=== PATIENT | female | born 1980 | race Caucasian/White ===

== ENCOUNTER → 2017-12-23 | Outpatient (CLI) | payer OTHER ==
[~2017-12-23] MED LIST: ADAL40PE SQ; ALBU0.63 IH; BUDE10.2 IH; CATHETER FLUSH 10 ML SYR IV PRN; CHOL100045 PO; CIME200T14 PO; HYDR-34 PO; LORA10TA7 PO; MELO15TA14 PO; MONT10TA21 PO; PSEU60TA20 PO; RT-ALBUINH IH
--- NOTE | 2017-12-23 12:25 | Diagnostic Imaging Report ---
PROCEDURE: US Gallbladder. TECHNIQUE: Multiple Real-time grayscale images were obtained over the right upper quadrant in various projections. INDICATION: Right-sided abdominal pain with nausea and vomiting. FINDINGS: The visualized pancreas is unremarkable. The liver is normal in size. No discrete liver mass is identified. The portal vein is patent and demonstrates normal direction of flow. The gallbladder is without stones or sludge. No wall thickening is identified. There is no pericholecystic fluid. No biliary ductal dilatation is seen. The right kidney is unremarkable. There is no ascites. IMPRESSION: No evidence of cholelithiasis or acute cholecystitis. Dictated by: Dictated on workstation # [id number]
--- NOTE | 2017-12-23 15:49 | Diagnostic Imaging Report ---
INDICATION: Right upper quadrant pain. TECHNIQUE: Patient was administered 5.5 mCi technetium-99m Choletec, and imaging over the abdomen was performed. At 60 minutes, the patient ingested one can of Ensure, and gallbladder ejection fraction was calculated. FINDINGS: There is homogeneous uptake of activity by the liver with prompt excision of activity into the gallbladder and common duct. There is normal passage of activity into the small bowel. Gallbladder ejection fraction is low at 9%. IMPRESSION: 1. No evidence of cystic duct or common bile duct obstruction. 2. Low gallbladder ejection fraction of 9%. Dictated by: Dictated on workstation # [id number]
== END ==
LOC: RAD 11:49
PROVIDERS: ATTEND Nurse Practitioner Family
DX: R10.11 Right upper quadrant pain (principal); R11.2 Nausea with vomiting, unspecified
CPT/HCPCS: 76705; 78227

== ENCOUNTER 2017-12-24 08:32 | Outpatient (CLI) | payer OTHER ==
[~2017-12-24] VITALS: Ht 167.6 cm; Wt 74.8 kg
[2017-12-24] MEDS ORDERED: CHOL100045 PO (10:53)
[2017-12-24] MEDS ORDERED: LORA10TA7 PO (10:53)
[2017-12-24] MEDS ORDERED: RT-ALBUINH IH (10:53)
[2017-12-24] MEDS ORDERED: CIME200T14 PO (10:53)
[2017-12-24] MEDS ORDERED: BUDE10.2 IH (10:53)
[2017-12-24] MEDS ORDERED: ADAL40PE SQ (10:53)
[2017-12-24] MEDS ORDERED: MELO15TA14 PO (10:53)
[2017-12-24] MEDS ORDERED: MONT10TA21 PO (10:53)
[2017-12-24] MEDS ORDERED: ALBU0.63 IH (10:53)
[2017-12-24] MEDS ORDERED: PSEU60TA20 PO (10:53)
[2017-12-25] MEDS ORDERED: HYDR-34 PO (14:06)
== END 2017-12-24 11:00 ==
LOC: PREOP 08:32
PROVIDERS: ATTEND Surgery
DX: Z01.818 Encounter for other preprocedural examination (principal); K82.8 Other specified diseases of gallbladder

== ENCOUNTER 2017-12-25 12:09 | Day surgery (SDC) | payer OTHER ==
[~2017-12-25] VITALS: Ht 167.6 cm; Wt 74.8 kg
[~2017-12-25 12:09] MED LIST changes: -CATHETER FLUSH 10 ML SYR IV PRN; -HYDR-34 PO
[2017-12-25 12:13] VITALS: BP 137/97
[2017-12-25] MEDS ORDERED: BUP/EPI 0.5% 1:200,000 (SENSORCAINE) 30 ML VIAL ONE (12:20)
[2017-12-25] MEDS ORDERED: LACTATED RINGERS 1,000 ML IV PRN (12:26)
[2017-12-25] MEDS ORDERED: MIDAZOLAM 2 MG/2 ML (VERSED) VIAL ONE (12:27)
[2017-12-25] MEDS ORDERED: fentaNYL INJECTION 100 MCG/2 ML AMP ONE ×2 (12:27→13:58)
[2017-12-25] MEDS ORDERED: proPOfol 200 MG/20 ML (DIPRIVAN) VIAL IV ONE (12:27)
[2017-12-25] MEDS ORDERED: DEXAMETHASONE 10 MG/ML (DECADRON) 1 ML VIAL ONE (12:27)
[2017-12-25] MEDS ORDERED: SEVOFLURANE (ULTANE) 15 ML INHAL SOLN ONE (12:27)
[2017-12-25] MEDS ORDERED: LIDOCAINE PF 2% 5 ML (XYLOCAINE) VIAL ONE (12:27)
[2017-12-25] MEDS ORDERED: SCOPOLAMINE 1.5 MG (TRANSDERM-SCOP) PATCH TOP ONE (12:30)
[2017-12-25] MEDS ORDERED: ceFAZolin INJECTION 1,000 MG in NS (IVPB) 100 ML IV ONE (12:30)
[2017-12-25] MEDS ORDERED: FAMOTIDINE 20MG/2ML IV (PEPCID) IV ONE (12:30)
[2017-12-25] MEDS ORDERED: ONDANSETRON 4 MG/2 ML (SDV) Z0FRAN IV ONE (12:30)
[2017-12-25] MEDS: LACTATED RINGERS 1,000 ML IV PRN ×2 (12:40→13:30)
--- NOTE | 2017-12-25 12:42 | Progress Note-Pre Operative ---
Pre-Operative Progress Note H&P Reviewed The H&P was reviewed, patient examined and no changes noted. Date Seen by Provider: Dec 25, 2017 Time Seen by Provider: 12:30 Date H&P Reviewed: Dec 25, 2017 Time H&P Reviewed: 12:30 Pre-Operative Diagnosis: symptomatic chronic acalculous cholecystitis. MARY ELLEN ACUNA MD Dec 25, 2017 12:42 pm
[2017-12-25] MEDS ORDERED: HYDROcodone/APAP 5 MG/325 MG (LORTAB) TAB PO ONE (12:45)
[2017-12-25] MEDS ORDERED: morphine INJ 10 MG/ML 1ML (SYR OR VIAL) IVP PRN (12:45)
[2017-12-25] MEDS ORDERED: ACETAMINOPHEN 325 MG TABLET PO PRN (12:45)
[2017-12-25] MEDS ORDERED: ONDANSETRON 4 MG/2 ML (SDV) Z0FRAN IVP PRN (12:45)
[2017-12-25] MEDS ORDERED: NS (IVPB) 100 ML ONE (12:46)
[2017-12-25] MEDS ORDERED: SCOPOLAMINE 1.5 MG (TRANSDERM-SCOP) PATCH ONE (12:46)
[2017-12-25] MEDS ORDERED: ceFAZolin 1,000 MG (ANCEF) VIAL ONE (12:46)
[2017-12-25 12:50] LABS: BASOPHILS # (AUTO) 0.1 10^3/uL (0.0-0.1); BASOPHILS % (AUTO) 1 % (0-10); EOSINOPHILS # (AUTO) 0.6 10^3/uL (0.0-0.3); EOSINOPHILS % (AUTO) 6 % (0-10); HEMATOCRIT 40 % (35-52); LYMPHOCYTES # (AUTO) 1.9 X 10^3 (1.0-4.0); LYMPHOCYTES % (AUTO) 19 % (12-44); MEAN CORPUSCULAR HEMOGLOBIN 31 PG (25-34); MEAN CORPUSCULAR HGB CONC 35 G/DL (32-36); MEAN CORPUSCULAR VOLUME 89 FL (80-99); MEAN PLATELET VOLUME 10.2 FL (7.4-10.4); MONOCYTES % (AUTO) 10 % (0-12); NEUTROPHILS # (AUTO) 6.4 X 10^3 (1.8-7.8); NEUTROPHILS % (AUTO) 64 % (42-75); PLATELET COUNT 246 10^3/uL (130-400); RED BLOOD COUNT 4.54 10^6/uL (4.35-5.85); RED CELL DISTRIBUTION WIDTH 11.9 % (10.0-14.5); WHITE BLOOD COUNT 9.9 10^3/uL (4.3-11.0)
[2017-12-25] MEDS ORDERED: ONDANSETRON 4 MG/2 ML (SDV) Z0FRAN ONE (13:45)
[2017-12-25] MEDS ORDERED: ROCURONIUM 10 MG/ML 5 ML SYRINGE IV ONE (13:47)
[2017-12-25] MEDS ORDERED: GLYCOPYRROLATE 0.2 MG/ML (ROBINUL) 2 ML VIAL ONE (13:49)
[2017-12-25] MEDS ORDERED: NEOSTIGMINE 1 MG/ML 5 ML SYRINGE ONE (13:49)
--- NOTE | 2017-12-25 14:02 | Progress Note-Post Operative ---
Post-Operative Progess Note Surgeon (s)/Farmworker Vegetable (s) Surgeon MARY ELLEN ACUNA MD Farmworker Vegetable: abhijit mora HIDE COOKING OPERATOR Pre-Operative Diagnosis symptomatic chronic acalculous cholecystitis. Post-Operative Diagnosis same Procedure & Operative Findings Date of Procedure 12/25/17 Procedure Performed/Findings laparoscopic cholecystectomy Anesthesia Type GET Estimated Blood Loss Estimated blood loss (mL): minimal Specimens/Packing Specimens Removed gallbladder MARY ELLEN ACUNA MD Dec 25, 2017 14:02
[2017-12-25] MEDS ORDERED: HYDR-34 PO (14:06)
--- NOTE | 2017-12-25 14:07 | Discharge Inst-Surgical ---
D/C Lap Instructions-KALPANA New, Converted, or Re-Newed RX: RX on Chart Follow Up Appt in 2 weeks Activity as tolerated No driving for 24 hours No driving while on pain medications Incentive Spirometry use every 2 hours while awake Regular Diet Symptoms to Report: Fever over 101 degree F, Nausea/Vomiting Infection Signs and Symptoms to report: Increased redness, Foul odor of wound, Increased drainage Bathing instructions: May shower Operative Area Clean/Dry; Keep incision clean/dry If any problems/questions: Contact your physician or go to Emergency Room MARY ELLEN ACUNA MD Dec 25, 2017 14:07
[2017-12-25] MEDS ORDERED: MEPERIDINE (DEMEROL) INJ 50 MG/ML IVP PRN (14:15)
[2017-12-25] MEDS ORDERED: PROMETHAZINE INJ 25 MG/ML (PHENERGAN) AMP IVP PRN (14:15)
[2017-12-25] MEDS: fentaNYL INJECTION 100 MCG/2 ML AMP IVP PRN ×4 (14:20→14:37)
--- NOTE | 2017-12-25 14:29 | Anesthesia-General Post-Op ---
General Patient Condition Mental Status/LOC: Same as Preop Cardiovascular: Satisfactory Nausea/Vomiting: Absent Respiratory: Satisfactory Pain: Controlled Complications: Absent Post Op Complications Complications None Follow Up Care/Instructions Patient Instructions None needed. Anesthesia/Patient Condition Patient Condition Patient is doing well, no complaints, stable vital signs, no apparent adverse anesthesia problems. No complications reported per nursing. [place] [facility] [place] ELISABETH QUIROZ CRNA Dec 25, 2017 14:29
[2017-12-25 15:05] VITALS: BP 141/83
[2017-12-25] MEDS ORDERED: HYDROcodone/APAP 7.5 MG/325 MG (LORTAB, LORCET PLUS) TABLET PO ONE (15:21)
[2017-12-25] MEDS ORDERED: HYDROcodone/APAP 7.5 MG/325 MG (LORTAB, LORCET PLUS) TABLET PO PRN (15:30)
[2017-12-25 15:35] VITALS: BP 126/77
[2017-12-25 16:15] VITALS: BP 144/88
[2017-12-25 16:36] VITALS: BP 144/88
--- NOTE | 2017-12-25 20:38 | OPERATIVE REPORT ---
DATE OF SERVICE: 12/25/2017 ATTENDING PRIMARY CARE PHYSICIAN: Raghav Gonzalez MD. PREOPERATIVE DIAGNOSIS: Symptomatic acalculous chronic cholecystitis. POSTOPERATIVE DIAGNOSIS: Symptomatic acalculous chronic cholecystitis. PROCEDURE: Laparoscopic cholecystectomy. SURGEON: Mary Ellen Acuna MD. PUBLIC SERVICE ADMINISTRATOR: Cliff Greenwood APRN. ANESTHESIA: General endotracheal. ESTIMATED BLOOD LOSS: Minimal. FINDINGS: Dilated gallbladder with mild to moderate gallbladder wall thickening. No stones. DISPOSITION: The patient tolerated the procedure well. INDICATIONS: The patient is a 37-year-old female, who has had approximately 6 to 12 months of intermittent episodes of right upper abdominal quadrant pain. This was initially mild; however, in the past week, she has had a severe episode in the right upper abdominal quadrant which would not remit. She also reported some possible mild fevers at home as well as associated nausea. An ultrasound was performed which did not show any gallstones; however, she did have a HIDA scan performed which showed an ejection fraction of 9% consistent with a chronic acalculous cholecystitis. DESCRIPTION OF PROCEDURE: The patient was brought to the operating room, laid supine on the table. After adequate IV pain sedative medications and general endotracheal intubation, the abdomen was prepped and draped in standard surgical fashion. A 0.5% Marcaine with epinephrine was then used to anesthetize the overlying skin in the left upper abdominal quadrant and a small transverse skin incision made using a 15 blade. An 0 silk suture was applied to the medial aspect of the incision for retraction and a Veress needle inserted with a low opening pressure of 0 mmHg. The Veress needle removed and a 5 mm Xcel trocar placed followed by a 5 mm 45-degree angle laparoscope visualizing the peritoneal cavity. A 4-quadrant abdominal x-ray was performed. A dilated gallbladder was identified. Liver, stomach, small bowel and omentum appeared normal. Under direct visualization, we then proceed to place a supraumbilical 10 mm port after the skin and peritoneal lining were anesthetized using 0.5% Marcaine and a transverse skin incision made using 15 blade. In a similar manner, a right upper abdominal quadrant 5 mm port was placed. The patient was then placed in reverse Trendelenburg position as well as plane right side up, left side down. The fundus of the gallbladder was then retracted anteriorly and superiorly. The omental adhesions were then taken down using blunt dissection as well as electrocautery on the hook instrument. The hepatoduodenal ligament was then opened using electrocautery as well as blunt dissection on the hook instrument. The entire critical view of safety was identified including the triangle of Calot as well as the cystic duct and artery, the only two structures going into the gallbladder as well as the cystic plate behind the proximal gallbladder. A timeout was then taken. The cystic duct and artery were then clipped proximally and distally and cut with EndoShears. The gallbladder was then dissected off the liver bed using electrocautery on hook instrument with visualization of good hemostasis as well as no leaking ducts of Luschka. The gallbladder was removed through the 10 mm port site using an EndoCatch bag. The fascia and peritoneum to the 10 mm port site were then closed under direct visualization using a Jonathan-Mariano device and 0 Vicryl suture. The abdomen was desufflated while remaining ports removed. All skin incisions were closed using 4-0 Monocryl running subcuticular sutures. Wounds were then cleaned and covered with Dermabond. The patient tolerated the procedure well. We will start IV and oral pain medication as well as a clear liquid diet. Once she is tolerating clears, has good pain control with oral pain medications, ambulating well, we will discharge her home. She will be instructed to do no heavy lifting or exertion for the next two weeks. Job ID: [id number] DocumentID: [id number] Dictated Date: 12/25/2017 14:13:55 Rehabilitation Engineer Date: 12/25/2017 20:38:05 Dictated By: MARY ELLEN ACUNA MD
== END 2017-12-25 16:36 | disposition home or self-care (01) ==
LOC: SDC 12:09
PROVIDERS: ATTEND Surgery
DX: K81.1 Chronic cholecystitis (principal); J45.909 Unspecified asthma, uncomplicated; K21.9 Gastro-esophageal reflux disease without esophagitis; Z88.6 Allergy status to analgesic agent; Z79.899 Other long term (current) drug therapy
CPT/HCPCS: 36415; 84703; 85025; 87081; 88304; 94664

== ENCOUNTER → 2019-04-29 | Outpatient (REF) ==
[~2019-04-29] MED LIST changes: +HYDR-34 PO
--- NOTE | 2019-04-29 10:52 | Diagnostic Imaging Report ---
CLINICAL INDICATION: Patient was walking and stepped into a kick bucket and did the splits. Patient has pain in back of femur and down by the knee. EXAM: X-ray of the right femur, 4 views. COMPARISON: None. FINDINGS: There is no acute fracture or dislocation. There are small spurs involving the proximal right femoral head/neck junction region. Small phleboliths are seen in the pelvis. There is no gross soft tissue abnormality seen. IMPRESSION: Mild degenerative disease of the right hip with no acute fracture or dislocation. Dictated by: Dictated on workstation # [id number]
--- NOTE | 2019-04-29 14:37 | Diagnostic Imaging Report ---
INDICATION: Right ankle injury. Time of exam 9:53 a.m. FINDINGS: Three views of the right ankle were obtained. Ankle alignment is normal. Ankle mortise is well-maintained. The talar dome is smooth. No fracture or dislocation is seen. IMPRESSION: No acute bony abnormality is detected. Dictated by: Dictated on workstation # [id number]
== END | disposition home or self-care (01) ==
LOC: MERGE 09:30 → OCC 09:30
PROVIDERS: ATTEND Nurse Practitioner Family
CPT/HCPCS: 73552; 73610

== ENCOUNTER 2019-10-06 13:52 | Outpatient (CLI) | payer OTHER ==
[~2019-10-06 13:52] MED LIST changes: -PSEU60TA20 PO; +PSEU60TA21 PO
[2019-10-06 14:00] VITALS: BP 140/93
[2019-10-06 14:34] LABS: BUN/CREATININE RATIO 33; CALCIUM 9.2 MG/DL (8.5-10.1); CARBON DIOXIDE 22 MMOL/L (21-32); CHLORIDE 108 MMOL/L (98-107); GFR ESTIMATED > 60; GLUCOSE 107 MG/DL (70-105); POTASSIUM 3.9 MMOL/L (3.6-5.0); SODIUM 138 MMOL/L (135-145)
== END 2019-10-06 14:08 | disposition home or self-care (01) ==
LOC: SDC 13:52
PROVIDERS: ATTEND Allergy & Immunology
DX: E87.6 Hypokalemia (principal)
CPT/HCPCS: 36415; 80048

== ENCOUNTER → 2021-07-18 | Outpatient (CLI) | payer OTHER ==
[~2021-07-18] MED LIST changes: -PSEU60TA21 PO; +PSEU60TA87 PO
== END ==
LOC: LAB 12:50
DX: E67.3 Hypervitaminosis D (principal); Z79.899 Other long term (current) drug therapy
CPT/HCPCS: 36415; 82306

== ENCOUNTER 2022-06-26 15:11 | Outpatient (RCR) | payer OTHER ==
[~2022-06-26 15:11] MED LIST changes: -CIME200T14 PO; +CIME200T90 PO
[2022-06-26 15:24] LABS: POTASSIUM 3.8 MMOL/L (3.6-5.0)
[2022-06-26 15:29] LABS: CREATININE SERUM 0.82 MG/DL (0.60-1.30)
== END 2022-07-09 | disposition home or self-care (01) ==
LOC: LAB 15:11
PROVIDERS: ATTEND Allergy & Immunology
DX: E87.6 Hypokalemia (principal)
CPT/HCPCS: 36415; 80048